=== PATIENT | male | born 1970 | race Caucasian/White ===

== ENCOUNTER 2022-12-04 19:51 | Emergency (ER) | payer BC ==
[2022-12-04] MEDS ORDERED: Sodium Chloride 0.9% 10 ML Syringe FLUSH PRN (20:03)
[2022-12-04] MEDS ORDERED: Cephalexin 500 MG Cap PO STA (21:26)
== END 2022-12-04 22:18 | disposition home or self-care (01) ==
LOC: JD.ED 19:51
DX: S68.122A Partial traumatic metacarpophalangeal amputation of right middle finger, initial encounter (principal); W22.8XXA Striking against or struck by other objects, initial encounter; Y92.69 Other specified industrial and construction area as the place of occurrence of the external cause; Y99.0 Civilian activity done for income or pay
CPT/HCPCS: 73140; 99284; A9270; 99283